=== PATIENT | male | born 1970 | race Caucasian/White ===

== ENCOUNTER 2017-03-09 17:34 | Emergency (ER) | payer SELFPAY ==
[~2017-03-09] VITALS: Ht 172.7 cm; Wt 85.0 kg
[2017-03-10] MEDS ORDERED: ACETAMINOPHEN 325MG TABLET PO ONE (00:30)
[2017-03-10 01:09] VITALS: BP 120/70
== END 2017-03-10 01:58 | disposition home or self-care (01) ==
LOC: ER 18:00
DX: G89.29 Other chronic pain (principal); M54.5 Low back pain
CPT/HCPCS: 99283